=== PATIENT | male | born 1995 | race Caucasian/White ===

== ENCOUNTER 2024-12-08 04:05 | Emergency (ER) | payer SELFPAY ==
[~2024-12-08] VITALS: Ht 182.9 cm; Wt 89.0 kg
[2024-12-08 04:39] VITALS: BP 141/67; TEMP 36.7; O2SAT 99
[2024-12-08 04:41] VITALS: PULSE 80; RESP 18; O2SAT 99
[2024-12-08] MEDS ORDERED: ONDA-239 PO (04:50)
== END 2024-12-08 04:57 | disposition home or self-care (01) ==
LOC: ER 04:19
DX: K52.9 Noninfective gastroenteritis and colitis, unspecified (principal); Z88.0 Allergy status to penicillin
CPT/HCPCS: 99283